=== PATIENT | female | born 1985 | race African-American/Black ===

== ENCOUNTER 2017-11-29 04:43 | Emergency (ER) | payer SELFPAY ==
[2017-11-29] MEDS ORDERED: Oxymetazoline HCl 0.05% ( 15 ML ) ONE (05:13)
[2017-11-29 05:31] LABS: Hemoglobin 10.9 g/dL (12.0-16.0); Mean Corpuscular HGB CONC 33.2 g/dL (32.0-36.0); Mean Corpuscular Hemoglobin 25.3 pg (27.0-31.0); Mean Corpuscular Volume 76.3 fl (81.0-99.0); Mean Platelet Volume 8.1 fL (7.4-10.4); Platelet Count 365 thou/uL (130-400); White Blood Cell (WBC) Count 15.8 thou/uL (4.8-10.8)
[2017-11-29] MEDS ORDERED: Acetaminophen 500 MG TAB ONE (05:32)
[2017-11-29] MEDS ORDERED: Amoxicillin/Potassium Clav 875 MG TAB ONE (05:32)
[2017-11-29 05:33] LABS: Manual Diff?? YES
[2017-11-29 05:34] LABS: Anisocytosis SLIGHT = 6-15 cells (100X) (0-5/hpf); Lymphocytes 13 % (21-51); MDiff Complete? YES; Microcytosis SLIGHT = 6-15 cells (100X) (0-5/hpf); Monocytes 2 % (0-10); Neutrophil 85 % (42-75)
[2017-11-29 05:35] LABS: PLT Morphology Comment Appears Adequate
== END 2017-11-29 05:40 | disposition home or self-care (01) ==
LOC: BURERS 04:43
DX: R04.0 Epistaxis (principal); J01.90 Acute sinusitis, unspecified; F31.9 Bipolar disorder, unspecified; F41.9 Anxiety disorder, unspecified; F17.210 Nicotine dependence, cigarettes, uncomplicated
CPT/HCPCS: 36415; 85025; 99283

== ENCOUNTER 2019-08-24 10:02 | Emergency (ER) | payer SELFPAY ==
[2019-08-24] MEDS ORDERED: HYDROcodone/Acetaminophen 5/325 mg Tablet ONE (11:35)
--- NOTE | 2019-08-24 15:35 | RAD ---
PELVIS ONE VIEW: 08/24/19 No fracture was seen. The hip joints appear normal. The SI joints appear normal. The symphysis show s no widening or offset. IMPRESSION: No acute findings POS: HOME
--- NOTE | 2019-08-24 15:36 | RAD ---
LUMBAR SPINE FIVE VIEWS: 08/24/19 No fracture, dislocation, or disc space narrowing was seen. No bony abnormalities were seen. The SI j oints are symmetrical. IMPRESSION: No acute findings. POS: HOME
--- NOTE | 2019-08-24 15:37 | RAD ---
SACRUM AND COCCYX: 08/24/19 Three views show no obvious fracture. The arcuate lines of the sacrum appear intact and the SI joints appear normal. The coccyx appears normal. Small subtle sacral fractures would only be seen on CT. IMPRESSION: No acute finding. POS: HOME
== END 2019-08-24 11:45 | disposition home or self-care (01) ==
LOC: BURERS 10:02
DX: S30.0XXA Contusion of lower back and pelvis, initial encounter (principal); W19.XXXA Unspecified fall, initial encounter
CPT/HCPCS: 72110; 72170; 72220

== ENCOUNTER 2020-05-19 14:30 | Emergency (ER) | payer SELFPAY ==
[~2020-05-19 14:30] MED LIST: Iopamidol 370 76% 100 ML VIAL ONE
[2020-05-19 15:29] LABS: Hemoglobin 10.4 g/dL (12.0-16.0); Mean Corpuscular HGB CONC 29.7 g/dL (32.0-36.0); Mean Corpuscular Hemoglobin 23.2 pg (27.0-31.0); Mean Corpuscular Volume 78.3 fL (78.0-98.0); Mean Platelet Volume 8.5 fL (7.4-10.4); Platelet Count 336 thou/uL (130-400); RBC Distribution Width 15.2 % (11.5-14.5); Red Blood Cell (RBC) Count 4.49 mill/uL (4.20-5.40); White Blood Cell (WBC) Count 25.3 thou/uL (4.8-10.8)
[2020-05-19 15:40] LABS: BHCG - Serum Negative (NEGATIVE); Pregs Control Background? CLEAR/WHITE (CLR/WHITE); Pregs Control Bar Appear? YES (CONTROL BAR)
[2020-05-19 15:43] LABS: ALT (SGPT) 13 U/L (8-55); AST (SGOT) 21 U/L (5-34); Albumin 3.8 g/dL (3.5-5.0); Alkaline Phosphatase 92 U/L (40-110); Anion Gap 19 mmol/L (10-20); BUN (Urea Nitrogen) 12 mg/dL (7.0-18.7); Bilirubin, Total 0.4 mg/dL (0.2-1.2); Calc. Creatinine Clearance 0 mL/min (70-130); Calcium 8.9 mg/dL (7.8-10.44); Carbon Dioxide 20 mmol/L (22-29); Chloride 103 mmol/L (98-107); Estimated GFR-MDRD 86; Globulin 4.6 g/dL (2.4-3.5); Glucose 91 mg/dL (70-105); Lipase 16 U/L (8-78); Potassium 3.5 mmol/L (3.5-5.1); Protein, Total 8.4 g/dL (6.0-8.3); Sodium 138 mmol/L (136-145)
[2020-05-19 15:46] LABS: Band 40 % (5-11); Hypochromia SLIGHT = 6-15 cells (100X) (0-5/hpf); Lymphocytes 9 % (21-51); MDiff Complete? YES; Monocytes 1 % (0-10); Neutrophil 50 % (42-75); Toxic Granulation SLIGHT; Vacuoles SLIGHT
[2020-05-19 15:55] LABS: Bilirubin Negative (Negative); Blood, Urine Trace (Negative); Clarity Clear (Clear); Glucose, Urine (Dipstick) Negative (Negative); Ketone, Urine Negative (Negative); Leukocyte Negative (Negative); Nitrite Negative (Negative); Protein, Urine (Dipstick) Negative (Neg-Trace); Urobilinogen 0.2 mg/dL (Less than 2)
[2020-05-19 15:58] LABS: Bacteria/HPF 2+ HPF (None Seen); RBC/HPF 0-3 HPF (0-3); Squamous Epithelial 0-3 HPF (0-3); WBC/HPF 0-3 HPF (0-3)
[2020-05-19] MEDS ORDERED: Sodium Chloride 0.9% 0 ML ONE (17:07)
[2020-05-19] MEDS ORDERED: Sodium Chloride 0.9% 100 ML ONE (17:07)
[2020-05-19] MEDS ORDERED: Fentanyl 100 MCG/2 ML VIAL ONE (17:07)
[2020-05-19] MEDS ORDERED: cefTRIAXone\\ROCEPHIN 2 GM VIAL ONE ×2 (17:07)
--- NOTE | 2020-05-19 17:12 | CT ---
CT ANGIO OF THE CHEST 05/19/[address] of the chest was done after a bolus of IV contrast. There was difficulty starting an IV. Th e opacification is adequate to see larger and medium sized arteries, but peripheral emboli would be m issed. No filling defects are seen in the large or pulmonary artery branches out to the lobar level to sugge st emboli. There is no sign of aortic dissection or aneurysm. No significant pericardial effusion was seen. No mediastinal mass or adenopathy was present. The major finding on this study is diffuse confluent infiltrates, predominantly upper lobes and the s uperior segments of the lower lobes. The findings are bilateral and somewhat symmetrical. There is a ground glass appearance to much of this. While pulmonary edema would be in the differential, COVID sh ould be a strong consideration. Correlate with other clinical and lab findings. There are no effusion s. Scans into the upper abdomen showed no acute changes. The visible portions of each adrenal gland a ppeared normal. There is some mild increase in lymph nodes in each axilla, but the findings are symme trical and there is certainly no mediastinal adenopathy of concern. IMPRESSION: Diffuse confluent ground glass infiltrates with upper lobe and superior segment lower lobe predominan ce. The periphery of the lungs is relatively spared. Pulmonary edema is a consideration, but infectio n such as COVID is strongly considered in the differential as well. Correlate with the remainder of t he clinical picture and lab work. Preliminary findings discussed with Dr. Galan at 1652 on 05/19/20. POS: HOME
== END 2020-05-19 17:45 | disposition short-term general hospital (02) ==
LOC: BURERS 14:30
DX: J18.9 Pneumonia, unspecified organism (principal)
CPT/HCPCS: 36415; 71275; 80053; 81003; 81015; 83605; 83690; 83880; 84484; 84703; 85025; 85379; 87040; 93005; 94760; 96365; 96375; J0696; J1956; J3010; J3490; Q9967

== ENCOUNTER 2022-02-19 09:56 | Emergency (ER) | payer SELFPAY ==
[2022-02-19 10:39] LABS: ALT (SGPT) 11 U/L (8-55); AST (SGOT) 16 U/L (5-34); Albumin 3.8 g/dL (3.5-5.0); Alkaline Phosphatase 87 U/L (40-110); Anion Gap 14 mmol/L (10-20); BUN (Urea Nitrogen) 9 mg/dL (7.0-18.7); Bilirubin, Total 0.3 mg/dL (0.2-1.2); Calc. Creatinine Clearance 0 mL/min (70-130); Calcium 9.2 mg/dL (7.8-10.44); Carbon Dioxide 22 mmol/L (22-29); Chloride 106 mmol/L (98-107); Estimated GFR 102; Globulin 4.7 g/dL (2.4-3.5); Glucose 136 mg/dL (70-105); Potassium 3.8 mmol/L (3.5-5.1); Protein, Total 8.5 g/dL (6.0-8.3); Sodium 138 mmol/L (136-145)
[2022-02-19] MEDS ORDERED: Aspirin Chewable 81 MG TAB ONE (10:43)
[2022-02-19] MEDS ORDERED: Morphine 4 MG/ML VIAL ONE (10:43)
[2022-02-19 10:44] LABS: Hemoglobin 11.1 g/dL (12.0-16.0); Mean Corpuscular HGB CONC 31.7 g/dL (32.0-36.0); Mean Corpuscular Hemoglobin 25.1 pg (27.0-31.0); Mean Platelet Volume 9.9 fL (7.4-10.4); Platelet Count 324 thou/uL (130-400); RBC Distribution Width 15.7 % (11.5-14.5); Red Blood Cell (RBC) Count 4.43 mill/uL (4.20-5.40); White Blood Cell (WBC) Count 13.5 thou/uL (4.8-10.8)
[2022-02-19 10:49] LABS: Band 2 % (5-11); Lymphocytes 16 % (21-51); MDiff Complete? YES; Monocytes 10 % (0-10); Neutrophil 71 % (42-75); Reactive Lymphocytes 1 % (0-10)
== END 2022-02-19 12:30 | disposition home or self-care (01) ==
LOC: BURERS 09:56
DX: I31.9 Disease of pericardium, unspecified (principal); F17.210 Nicotine dependence, cigarettes, uncomplicated
CPT/HCPCS: 71045; 80053; 83880; 84484; 85025; 93005; 96374; J2270